=== PATIENT | male | born 1965 | race Caucasian/White ===

== ENCOUNTER → 2017-05-04 | Day surgery (SDC) | payer BC ==
[~2017-05-04] VITALS: Ht 196.8 cm; Wt 123.5 kg
[~2017-05-04] MED LIST: PERCOCET 5-3251 EACH PO
--- NOTE | ~2017-05-04 | HP ---
PATIENT'S NAME: RAGHAVENDRA WALDROP [facility] AGE: 51 Y [address] ROOM: [place] [address] LOCATION: [facility] ADMIT DATE: 05/04/2017 History & Physical DISCHARGE DATE: FAMILY PHYSICIAN: PHYSICIAN, UNKNOWN ATTENDING PHYSICIAN: Zeo Churchill DATE OF SERVICE: HISTORY OF PRESENT ILLNESS: A 51-year-old male who for the past several years has had a swollen right hemiscrotal area. In July 2016, he was seen by Dr. Guerra and was diagnosed having a hydrocele. This was aspirated, but since then it has returned and he wants to have it repaired. Presently, it is large and uncomfortable, and since it reoccurred after aspiration, he wants it completely removed. He has no other history of orchitis or scrotal problems. His voiding pattern is normal. He has no difficulty voiding. He has no previous history of urinary tract disease or infections. Apparently, his PSAs have all been normal in the past. PAST MEDICAL HISTORY: Illnesses: None. ALLERGIES: NONE. MEDICATIONS: None. OPERATIONS: None. PHYSICAL EXAMINATION: GENERAL: A well-developed, well-nourished male. CHEST: Clear. HEART: Normal sinus rhythm. ABDOMEN: Soft with no palpable masses. : Normal penis. Left hemiscrotum and left testicle was normal. He has a markedly enlarged swollen right hemiscrotal area. Testicles difficult to palpate. Prostate is normal in size, smooth, symmetrical, and benign to palpation. RECTAL: Negative. PATIENT'S NAME: RAGHAVENDRA WALDROP [facility] AGE: 51 Y [address] ROOM: [place] [address] LOCATION: [facility] ADMIT DATE: 05/04/2017 History & Physical DISCHARGE DATE: FAMILY PHYSICIAN: PHYSICIAN, UNKNOWN ATTENDING PHYSICIAN: Zoe Churchill IMPRESSION: Hydrocele, right. PLAN: Hydrocelectomy. ZOE CHURCHILL MD EKL/modl /[id number] CC: Kendy Browning MD D: [id number] T: [id number] HISTORY & PHYSICAL
--- NOTE | ~2017-05-04 | OR ---
PATIENT'S NAME: RAGHAVENDRA WALDROP [facility] AGE: 51 Y [address] ROOM: [place] [address] LOCATION: [facility] [place] ADMIT DATE: 05/04/2017 OR/Procedure Report DISCHARGE DATE: FAMILY PHYSICIAN: Nimesh Browning ATTENDING PHYSICIAN: Zoe Churchill SURGEON: Zoe Churchill MD [employer] ESTIMATOR: DATE OF PROCEDURE: 05/04/2017 PREOPERATIVE DIAGNOSIS: Hydrocele, right hemiscrotum. POSTOPERATIVE DIAGNOSIS: Complex spermatocele. PROCEDURE: Excision of complex spermatocele. DESCRIPTION OF PROCEDURE: After adequate anesthesia, he was prepped and draped. An incision was made and the testicle and the huge scrotal mass was exposed. It was not a hydrocele. There was a complex spermatocele involving both the upper pole epididymis and lower pole. Attention was turned to the upper pole and the huge spermatocele was carefully dissected off the surrounding structures and the vascular supply to the testicle. Then, the lower pole epididymis spermatocele was dissected off. Bleeding was controlled. The testicle was placed back in its normal anatomical position and closed in 2 layers with 3-0 Vicryl. ZOE CHURCHILL MD EKL/nickol /[id number] d: 05/04/17829 t: 05/05/17 0416, OPERATIVE SUMMARY
[2017-05-04 06:06] LABS: BASOPHIL # 0.1 K/uL (0.0-0.2); BASOPHIL % 1.1 %; EOSINOPHIL # 0.1 K/uL (0.0-0.5); EOSINOPHIL % 2.9 %; HEMATOCRIT 43.7 % (37.0-53.0); HEMOGLOBIN 15.9 g/dL (12.0-17.0); IMMATURE GRANULOCYTE % 0.2 %; LYMPHOCYTE # 1.7 K/uL (0.8-4.0); LYMPHOCYTE % 34.9 %; MCH 32.6 pg (27.0-34.0); MCHC 36.4 gm/dL (32.0-36.5); MCV 89.5 fl (83.0-98.0); MONOCYTE # 0.4 K/uL (0.0-1.0); MONOCYTE % 7.4 %; MPV 9.8 fl (9.4-12.4); NEUTROPHIL # (ANC) 2.5 K/uL (1.4-9.0); NEUTROPHIL % 53.5 %; NRBC % 0 /100WBC (0-0.00); PLATELET COUNT 179 K/uL (150-450); RBC 4.88 M/uL (4.00-6.00); RDW-CV 11.8 % (11.9-14.6); WBC 4.8 K/uL (4.0-11.0)
--- NOTE | 2017-05-04 08:16 | NUR ---
d: Verbal handoff to Vanesa Reyes RN. Transferred to [facility] 1033 per cart. called to room. Denies any pain at this time. A/O x3.
== END | disposition disaster alternative care site (69) ==
LOC: GPOC 04-28 14:00 → GSDC 05:34 → GPOC 14:00
PROVIDERS: Urology
PROC: 0VBJ0ZZ Excision of Right Epididymis, Open Approach (ICD-10-PCS; principal; 2017-05-04)
DX: N43.42 Spermatocele of epididymis, multiple (principal)
CPT/HCPCS: J0690; J1100; J2001; J2405; J7120